=== PATIENT | female | born 1970 | race Caucasian/White ===

== ENCOUNTER 2018-11-10 16:07 | Emergency (ER) | payer BC, OTHER | END 2018-11-10 17:54 | disposition home or self-care (01) | LOC: ER 16:07 ==

== ENCOUNTER → 2022-04-21 | Outpatient (CLI) | payer BC, OTHER ==
[~2022-04-21] MED LIST: ACHD5005 PO
--- NOTE | 2022-04-21 11:45 | Diagnostic Imaging Report ---
HAND, 3 VIEWS, BILATERAL INDICATION: Bilateral hand pain COMPARISON: None available. TECHNIQUE: 3 views of each hand for a total of 6 views. FINDINGS: There is an expansile lucent lesion in the distal aspect of the right 5th metacarpal that is most compatible with enchondroma. There is marked thinning along the radial cortex and there could be a pathologic fracture present. The remainder of the osseous structures of both hands are normal in appearance. No osseous erosions. No cartilage calcifications. No hypertrophic degenerative change. IMPRESSION: 1. Enchondroma in the right 5th metacarpal may have a nondisplaced pathologic fracture. Correlation for focal pain in this region is advised. 2. Otherwise, no osseous abnormality within either hand. Dictated by: Dictated on workstation # [id number]
== END ==
LOC: ORTHO 10:00
PROVIDERS: ATTEND Orthopaedic Surgery
DX: D16.11 Benign neoplasm of short bones of right upper limb (principal)
CPT/HCPCS: 73130; G0463; 99203

== ENCOUNTER → 2022-07-13 | Outpatient (CLI) | payer OTHER | LOC: ORTHO 14:22 | PROVIDERS: ATTEND Orthopaedic Surgery | DX: G56.03 Carpal tunnel syndrome, bilateral upper limbs (principal) | CPT/HCPCS: 99213 ==

== ENCOUNTER 2022-07-30 05:32 | Outpatient (CLI) | payer OTHER ==
[~2022-07-30] VITALS: Ht 165.1 cm; Wt 113.5 kg
[2022-08-03] MEDS ORDERED: LEVO50CA4 PO (10:38)
[2022-08-03] MEDS ORDERED: RIZA10TA37 PO (10:38)
[2022-08-03] MEDS ORDERED: TIZA-186 PO (10:38)
[2022-08-03] MEDS ORDERED: GABA300C PO (10:38)
[2022-08-03] MEDS ORDERED: OXYC1TAB15 PO (10:38)
== END 2022-08-03 10:34 | disposition home or self-care (01) ==
LOC: PREOP 05:32
PROVIDERS: ATTEND Orthopaedic Surgery
DX: Z01.818 Encounter for other preprocedural examination (principal)

== ENCOUNTER 2022-08-06 05:45 | Day surgery (SDC) | payer OTHER ==
[~2022-08-06] VITALS: Ht 165 cm; Wt 113.5 kg
[2022-08-06] VITALS (8 sets, daily range): BP systolic 98–157; BP diastolic 52–100
[~2022-08-06 05:45] MED LIST changes: +GABA300C PO; +LEVO50CA4 PO; +OXYC1TAB15 PO; +RIZA10TA37 PO; +TIZA-186 PO
[2022-08-06] MEDS ORDERED: LACTATED RINGERS 1,000 ML IV PRN (06:00)
[2022-08-06] MEDS ORDERED: CLINDAMYCIN 600 MG/50 ML IVPB 50 ML IV ONE (06:00)
[2022-08-06] MEDS ORDERED: PROPOFOL INJECTION 50 ML IV ONE ×2 (07:17→08:46)
[2022-08-06] MEDS ORDERED: MIDAZOLAM 2 MG/2 ML (VERSED) VIAL ONE (07:17)
[2022-08-06] MEDS ORDERED: LIDOCAINE 1% INJ 20 ML VIAL ONE (07:22)
[2022-08-06] MEDS ORDERED: LIDOCAINE/EPI 1%-1:100,000 (XYLOCAINE) 20ML ONE (07:22)
[2022-08-06] MEDS ORDERED: BUPIVACAINE 0.25% 30 ML (SENSORCAINE) VIAL ONE (07:22)
[2022-08-06] MEDS ORDERED: diphenhydrAMINE 50 MG/ML INJ (BENADRYL) ONE (07:52)
--- NOTE | 2022-08-06 07:54 | Progress Note-Pre Operative ---
Pre-Operative Progress Note Date of Available H&P: Jul 13, 2022 Date H&P Reviewed: August 06, 2022 Time H&P Reviewed: 07:45 History & Physical: H&P Reviewed, Patient Examed, No changes noted Pre-Operative Diagnosis: Left Carpal Tunnel Syndrome JADA KRUGER MD August 06, 2022 07:54
[2022-08-06] MEDS ORDERED: ceFAZolin INJECTION 2,000 MG ONE (07:56)
[2022-08-06] MEDS ORDERED: NS (IVPB) 50 ML ONE (07:56)
[2022-08-06] MEDS ORDERED: ceFAZolin INJECTION 2,000 MG in NS (IVPB) 50 ML IV ONE (08:15)
[2022-08-06] MEDS ORDERED: proPOfol 200 MG/20 ML (DIPRIVAN) VIAL IV ONE (08:45)
--- NOTE | 2022-08-06 08:47 | Operative Report - Ortho ---
Operative Report Surgeon (s)/Reconstructive Dentist (s) Surgeon JADA KRUGER MD Reconstructive Dentist n/a Pre-Operative Diagnosis Left Carpal Tunnel Syndrome Post-Operative Diagnosis same Operative Report Date of Procedure: August 06, 2022 Name of Procedure Performed: Left Carpal Tunnel Release Description & Findings After obtaining informed consent and marking the patient in the preoperative holding area, the patient was administered IV antibiotics. The patient was t aken to the operating room and sedation was induced. Local anesthetic was placed. The left upper extremity was prepped and draped in the usual sterile fashion. Surgical timeout was taken. Incision was made just ulnar to the thenar crease. Blunt dissection was carried down to the longitudinal fibers of the palmar fascia; these were divided in line revealing the transverse carpal ligament. Beginning distally and working proximally, carpal tunnel release was performed. Nerve protector was placed and release was completed back to the level of the forearm fascia. Probe was inserted and release was palpably complete. Tourniquet was dropped and hemostasis was achieved. Wound was closed with 4-0 nylon. Wound was dressed with xeroform, 4x4s, oracio, ABD for soft splint, cast padding, and CORINE wrap. Patient tolerated the proceudre well and was stable to the recovery room. Anesthesia Type MAC plus Local Estimated Blood Loss minimal Specimen(s) collected/removed None JADA KRUGER MD August 06, 2022 08:47
--- NOTE | 2022-08-06 09:54 | Anesthesia-General Post-Op ---
MAC Patient Condition Mental Status/LOC: Same as Preop Cardiovascular: Satisfactory Nausea/Vomiting: Absent Respiratory: Satisfactory Pain: Controlled Complications: Absent Post Op Complications Complications None Follow Up Care/Instructions Patient Instructions None needed. Anesthesiology Discharge Order Discharge Order Patient is doing well, no complaints, stable vital signs, no apparent adverse anesthesia problems. No complications reported per nursing. JONATHAN BERNAL CRNA August 06, 2022 09:54
== END 2022-08-06 10:30 | disposition home or self-care (01) ==
LOC: SDC 05:45
PROVIDERS: ATTEND Orthopaedic Surgery
DX: G56.02 Carpal tunnel syndrome, left upper limb (principal); E66.01 Morbid (severe) obesity due to excess calories; Z68.41 Body mass index [BMI] 40.0-44.9, adult
CPT/HCPCS: 87081

== ENCOUNTER → 2022-08-19 | Outpatient (CLI) | payer OTHER | LOC: ORTHO 08:56 | PROVIDERS: ATTEND Orthopaedic Surgery | DX: Z47.89 Encounter for other orthopedic aftercare (principal) ==

== ENCOUNTER → 2022-09-22 | Outpatient (CLI) | payer OTHER | LOC: ORTHO 09:34 | PROVIDERS: ATTEND Orthopaedic Surgery | DX: Z47.89 Encounter for other orthopedic aftercare (principal) ==